=== PATIENT | female | born 1955 | race Caucasian/White ===

== ENCOUNTER 2021-07-02 13:05 | Emergency (ER) | payer OTHER ==
[2021-07-02] MEDS ORDERED: LIDOCAINE 4% PATCH ONE (17:03)
[2021-07-02] MEDS ORDERED: HYDROCODONE/APAP 7.5/325 MG TAB ONE (17:03)
--- NOTE | 2021-07-02 17:35 | ER ---
Nurse's Notes [facility] [place] Name: Yeimy White Age: 65 yrs Sex: Female : 1955 Arrival Date: 07/02/2021 Time: 13:08 Bed 12 Private MD: Diagnosis: Low back pain Presentation: 07/02 15:27 Chief complaint: Patient states: Lower back pain x 3 months; states has been recently vg1 dx with Osteoporosis and had a Vitamin D infusion on 06/27/21. Coronavirus screen: Vaccine status: Patient reports receiving the 2nd dose of the covid vaccine. Client denies travel out of the [place] in the last 14 days. Ebola Screen: Patient negative for fever greater than or equal to 101.5 degrees Fahrenheit, and additional compatible Ebola Virus Disease symptoms. Initial Sepsis Screen: Does the patient meet any 2 criteria? No. Patient's initial sepsis screen is negative. Does the patient have a suspected source of infection? No. Patient's initial sepsis screen is negative. Risk Assessment: Do you want to hurt yourself or someone else? Patient reports no desire to harm self or others. Onset of symptoms was July 02, 2021. 15:27 Method Of Arrival: Ambulatory vg1 15:27 Acuity: FERCHO 3 vg1 Triage Assessment: 15:30 General: Appears in no apparent distress. uncomfortable, Behavior is calm, cooperative. vg1 Pain: Complains of pain in back. Historical: - Allergies: 15:30 No Known Allergies; vg1 - Home Meds: 15:30 Aspirin Oral [Active]; Prilosec Oral [Active]; Vitamin D Oral [Active]; vg1 - PMHx: 15:30 Osteoporosis; Diabetes mellitus; Hypercholesterolemia; Hypertensive disorder; GERD; vg1 - Immunization history:: Client reports receiving the 2nd dose of the Covid vaccine. - Social history:: Smoking status: Patient/guardian denies using tobacco, but has a distant history of tobacco abuse. Screenin:20 Abuse screen: Denies threats or abuse. Denies injuries from another. Nutritional ld1 screening: No deficits noted. Tuberculosis screening: No symptoms or risk factors identified. Fall Risk None identified. Assessment: 17:20 General: Appears in no apparent distress. comfortable, Behavior is calm, cooperative, ld1 appropriate for age. 17:20 Pain: Complains of pain in low back area Pain does not radiate. Pain currently is 8 out ld1 of 10 on a pain scale. Quality of pain is described as throbbing, Pain began gradually. Neuro: Level of Consciousness is awake, alert, obeys commands, Oriented to person, place, time, situation. Cardiovascular: Capillary refill < 3 seconds Patient's skin is warm and dry. Rhythm is regular. Respiratory: Airway is patent Respiratory effort is even, unlabored, Respiratory pattern is regular, symmetrical. GI: Abdomen is round non-distended. : No signs and/or symptoms were reported regarding the genitourinary system. EENT: No signs and/or symptoms were reported regarding the EENT system. Derm: No signs and/or symptoms reported regarding the dermatologic system. Musculoskeletal: No signs and/or symptoms reported regarding the musculoskeletal system. Vital Signs: 15:27 BP 142 / 96; Pulse 100; Resp 17; Temp 98.8(O); Pulse Ox 100% ; Weight 107.95 kg; Height vg1 5 ft. 6 in. (167.64 cm); Pain 9/10; 15:27 Body Mass Index 38.41 (107.95 kg, 167.64 cm) vg1 ED Course: 13:08 Patient arrived in ED. am2 15:30 Triage completed. vg1 15:30 Arm band placed on. vg1 16:36 Patient placed in an exam room, on a stretcher. ll1 16:40 Joey Larsen NP is PHCP. pm1 16:40 Avelino Veras MD is Attending Physician. pm1 17:20 Patient has correct armband on for positive identification. Bed in low position. Call ld1 light in reach. Side rails up X2. Pulse ox on. NIBP on. Door closed. Noise minimized. Warm blanket given. 17:20 No provider procedures requiring assistance completed. Patient did not have IV access ld1 during this emergency room visit. Administered Medications: 17:07 Drug: [place] (HYDROcodone-acetaminophen) 10 mg-325 mg 1 tabs Route: PO; ld1 17:07 Follow up: Response: No adverse reaction ld1 17:07 Drug: Lidoderm Patch 5 % (700 mg/patch) 1 patches Route: Topical; Site: affected area; ld1 17:07 Follow up: Response: No adverse reaction ld1 Outcome: 17:35 Discharge ordered by MD. pm1 18:04 Discharged to home ambulatory. ld1 18:04 Condition: stable 18:04 Discharge instructions given to patient, Instructed on discharge instructions, follow up and referral plans. Demonstrated understanding of instructions, follow-up care. 18:05 Patient left the ED. ld1 Signatures: Joey Larsen NP [employer] SERV[employer] pm1 Maddi Hobbs Victoria, RN RN vg1 Rodolfo Muñoz RN RN 1 Allie Ponce RN RN ld1
--- NOTE | 2021-07-02 17:35 | EDPHYS ---
Physician Documentation [facility] Name: Yeimy White Age: 65 yrs Sex: Female : 1955 Arrival Date: 07/02/2021 Time: 13:08 Bed 12 Private MD: Avelino Ji HPI: 07/02 16:55 This 65 yrs old Female presents to ER via Ambulatory with complaints of Low Back Pain. pm1 16:55 The symptoms are located in the low back. The pain does not radiate. The problem was pm1 sustained from a chronic condition, the patient has had previous back surgery, Diagnosed with osteoarthritis to low back in April. History of L5 - S1 fusion many years ago. Modifying factors: the patient symptoms are aggravated by movement. Associated signs and symptoms: Pertinent negatives: fever, incontinence, numbness, tingling, urinary retention, weakness. Severity of symptoms: in the emergency department the symptoms are actually worse. Historical: - Allergies: 15:30 No Known Allergies; vg1 - Home Meds: 15:30 Aspirin Oral [Active]; Prilosec Oral [Active]; Vitamin D Oral [Active]; vg1 - PMHx: 15:30 Osteoporosis; Diabetes mellitus; Hypercholesterolemia; Hypertensive disorder; GERD; vg1 - Immunization history:: Client reports receiving the 2nd dose of the Covid vaccine. - Social history:: Smoking status: Patient/guardian denies using tobacco, but has a distant history of tobacco abuse. ROS: 16:55 Constitutional: Negative for fever, chills, and weight loss. pm1 16:55 Cardiovascular: Negative for chest pain, palpitations, and edema, Respiratory: Negative for shortness of breath, cough, wheezing, and pleuritic chest pain, Abdomen/GI: Negative for abdominal pain, nausea, vomiting, diarrhea, and constipation. 16:55 : Negative for injury, bleeding, discharge, and swelling, MS/Extremity: Negative for injury and deformity, Skin: Negative for injury, rash, and discoloration, Neuro: Negative for headache, weakness, numbness, tingling, and seizure. 16:55 Back: Positive for of the low back area, Negative for injury or acute deformity. 16:55 All other systems are negative. Exam: 16:55 Constitutional: This is a well developed, well nourished patient who is awake, alert, pm1 and in no acute distress. Head/Face: Normocephalic, atraumatic. 16:55 Skin: Warm, dry with normal turgor. Normal color with no rashes, no lesions, and no evidence of cellulitis. MS/ Extremity: Pulses equal, no cyanosis. Neurovascular intact. Full, normal range of motion. 16:55 Cardiovascular: Exam negative for acute changes, Rate: normal, Rhythm: regular, Pulses: no pulse deficits are appreciated. 16:55 Respiratory: Exam negative for acute changes, respiratory distress, shortness of breath. 16:55 Abdomen/GI: Inspection: obese Palpation: abdomen is soft and non-tender, in all quadrants. 16:55 Back: normal spinal alignment noted, vertebral tenderness, is appreciated at L5 and sacrum. 16:55 Neuro: Exam negative for acute changes, Orientation: is normal, Mentation: is normal, Motor: is normal, moves all fours. Vital Signs: 15:27 BP 142 / 96; Pulse 100; Resp 17; Temp 98.8(O); Pulse Ox 100% ; Weight 107.95 kg; Height vg1 5 ft. 6 in. (167.64 cm); Pain 9/10; 15:27 Body Mass Index 38.41 (107.95 kg, 167.64 cm) vg1 MDM: 16:45 Patient medically screened. pm1 17:14 Data reviewed: vital signs. pm1 17:34 Counseling: I had a detailed discussion with the patient and/or guardian regarding: the pm1 historical points, exam findings, and any diagnostic results supporting the discharge/admit diagnosis, the need for outpatient follow up, a family practitioner, to return to the emergency department if symptoms worsen or persist or if there are any questions or concerns that arise at home. Administered Medications: 17:07 Drug: [place] (HYDROcodone-acetaminophen) 10 mg-325 mg 1 tabs Route: PO; ld1 17:07 Follow up: Response: No adverse reaction ld1 17:07 Drug: Lidoderm Patch 5 % (700 mg/patch) 1 patches Route: Topical; Site: affected area; ld1 17:07 Follow up: Response: No adverse reaction ld1 Disposition: 07/03 07:47 Co-signature as Attending Physician, Avelino Veras MD I agree with the assessment and gumaro plan of care. Disposition Summary: 07/02/21 17:35 Discharge Ordered Location: Home pm1 Problem: new pm1 Symptoms: have improved pm1 Condition: Stable pm1 Diagnosis - Low back pain pm1 Followup: pm1 - With: Emergency Department - When: As needed - Reason: Worsening of condition Followup: pm1 - With: Private Physician - When: 2 - 3 days - Reason: Recheck today's complaints, Continuance of care, Re-evaluation by your physician Discharge Instructions: - Discharge Summary Sheet pm1 - Chronic Back Pain pm1 - Osteoarthritis pm1 Forms: - Medication Reconciliation Form pm1 - Thank You Letter pm1 - Antibiotic Education pm1 - Prescription Opioid Use pm1 Prescriptions: - meloxicam 15 mg Oral tablet - take 1 tablet by ORAL route once daily As needed; 20 tablet; Refills: 0, pm1 Product Selection Permitted - Lidoderm 5 % Topical adhesive patch,medicated - apply 1 patch by TRANSDERMAL route once daily As needed 12 hours on and 12 pm1 hours off in a 24 hour period; 10 patch; Refills: 0, Product Selection Permitted Signatures: Avelino Veras MD MD cha Marinas, Patrick, NP [employer] DEVELOPER pm1 Tiffany Castro, RN RN vg1 Allie Ponce RN RN ld1
[2021-07-02 18:11] VITALS: BP 142/96; TEMP 98.8; O2SAT 100
== END 2021-07-02 18:05 | disposition home or self-care (01) ==
LOC: ER 13:05
DX: M54.50 Low back pain, unspecified (principal); I10 Essential (primary) hypertension; Z79.82 Long term (current) use of aspirin
CPT/HCPCS: 99283